=== PATIENT | female | born 1950 | race Caucasian/White ===

== ENCOUNTER 2017-10-02 06:05 | Day surgery (SDC) | payer MEDICARE, OTHER ==
[2017-10-02] MEDS ORDERED: LACTATED RINGERS 1,000 ML IV ONE (06:55)
[2017-10-02] MEDS ORDERED: MIDAZOLAM 2 MG/2 ML VIAL IVP ONE (07:30)
[2017-10-02] MEDS ORDERED: fentaNYL 100 MCG/2 ML VIAL IVP ONE (07:30)
[2017-10-02 08:47] VITALS: BP 128/78
== END 2017-10-02 06:06 | disposition home or self-care (01) ==
LOC: SDS 06:05
PROVIDERS: ATTEND Surgery
PROC: 0DBP8ZX Excision of Rectum, Via Natural or Artificial Opening Endoscopic, Diagnostic (ICD-10-PCS; principal; 2017-10-02 07:30)
DX: Z12.11 Encounter for screening for malignant neoplasm of colon (principal); K62.1 Rectal polyp; K57.30 Diverticulosis of large intestine without perforation or abscess without bleeding; K64.8 Other hemorrhoids; I10 Essential (primary) hypertension; R73.01 Impaired fasting glucose; Z79.84 Long term (current) use of oral hypoglycemic drugs; G47.30 Sleep apnea, unspecified; E66.9 Obesity, unspecified; Z68.41 Body mass index [BMI] 40.0-44.9, adult
CPT/HCPCS: 45385; J7120

== ENCOUNTER 2019-05-18 14:25 | Outpatient (CLI) | payer MEDICARE, OTHER ==
[2019-05-18 17:15] VITALS: BP 130/70
--- NOTE | 2019-05-18 17:15 | SLEEP CARE CONSULTATION ---
Information from patient questionnaire entered by Jo Dominguez. I have reviewed and concur with the information entered by Jo Dominguez. This document represents the service I personally performed and the decisions made by me, Scotty Monroy MD, [facility]. History of Present Illness Reason for Visit: New patient Chief Complaint: reports: Snoring Usual bedtime: 11:00 PM- 12:00AM Time it takes to fall asleep: 15-20 MINUTES Snores at night: Yes Observed to quit breathing while asleep: Yes Sleeps alone due to snoring: Yes Number of times waking at night: 0-1 Reasons for waking at night: reports: Other (INDIGESTION) Toss, Turn, or Twitch while sleeping: No Recalls having dreams: Yes (SOMETIMES) Usually gets out of bed at: 3:30AM-9:00AM Feels refreshed in the morning: Yes (MOST OF THE TIME) Morning headache: No Sleepy or fatigued during the day: Yes (FATIGUED) Ever fallen asleep while driving: No Takes day naps: No Dreams during day naps: Yes Prior sleep studies: Yes Year and Where: JUNE 2012 OR 2012 [facility] Additional HPI information: I had the pleasure of seeing Ms. Elias along with her today regarding obstructive sleep apnea-hypopnea. As you know, she is a 68 year old lady who was diagnosed with the sleep-disordered breathing about 6 six years ago at the [facility]. AHI was 99.2 and vanda oxygen saturation, 67%. An autoCPAP was prescribed and set at 15 17 cmH2O. She wears a full face mask. She uses it every night and all night. The compliance data show usage in 178 out of the past 180 nights, averaging 7.5 hours a night. The residual AHI is 0.7 and avera ge air leak is 8.5 L/minute. The 90th percentile pressure is 15.6 cmH2O. 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 Patient is and lives in [place]. Have you smoked in the past 12 months: No Alcohol use: No Alcohol amount and frequency: 1 TIME PER YEAR, IF THAT Caffeine use: Yes Caffeine amount and frequency: 3-6 DIET COKES/DAY Family History Family history of sleep disordered breathing: Yes Family Hx Sleep Apnea: Sibling: Snoring (AND SON), Other: Snoring Allergies and Home Medications Home medication list reviewed: Yes Review of Systems Weight gain over past 5 years: 0 Cardiovascular: reports: high blood pressure, leg or foot swelling Respiratory: reports: shortness of breath Gastrointestinal: reports: difficulty swallowing Urinary: denies: incontinence, frequency, urgency, impotence, other Neurological: reports: headaches (MIGRAINS - 1 PER YEAR, FOR A WEEK) Psychiatric: denies: Attention Deficit Hyperactivity, anxiety, depression, mood disorder, claustrophobia, other Ear/Nose/Throat: reports: dry mouth/throat, tonsillectomy, wisdom teeth removed Endocrine: reports: too hot or cold (TOO COLD) Musculoskeletal: reports: joint pain Immunologic: reports: allergies to food or environment Physical Exam Vital signs obtained and entered by: Dr. Monroy Blood Pressure: 130/70 Cuff size: long Heart Rate: 59 O2 Saturation: 97 Neck circumference: 16.5 HEENT: No craniofacial malformation Nostrils: patent to airflow Turbinates: normal Septum: midline Mouth and throat: narrow oropharynx Soft palate: long Hard palate: normal Uvula: normal Uvula visualization: 50% Mallampati Class II Tongue: normal in size Tonsils: absent bilaterally Chin and jaw: normal size and position Neck: normal w/o lymphadenopathy or thyromegaly Heart: regular rate and rhythm Lungs: clear bilaterally Abdomen: soft Extremities: no edema or clubbing Neurologic: intact Impression and Plan IMPRESSION: 1. Obstructive Sleep Apnea-Hypopnea Syndrome, very severe, as previously diagnosed. She has excellent treatment compliance. The current pressure setting appears effective and comfortable. Her mask fits well. Narrow oropharynx and obesity are common predisposing factors for obstructive sleep apnea-hypopnea syndrome. Pathophysiology of sleep-disordered breathing was discussed. Because the CPAP is now older than the useful life of 5 years, I will order the patient a new one and make it an autoCPAP set slightly lower between 10 and 15 cmH2O. Plan: 1. Prescription made for an autoCPAP, heated humidifier, and related supplies. 2. Try to lose weight. 3. Avoid alcohol, sedative and muscle relaxant around bedtime. 4. Return for follow up after one month on the new machine. I spent 100% of this 15 minute visit face to face with the patient with greater than 50% of this was spent time counseling the patient and coordination of care.
== END 2019-05-18 14:26 | disposition home or self-care (01) ==
LOC: SC 14:25
PROVIDERS: ATTEND Internal Medicine Pulmonary Disease
DX: G47.33 Obstructive sleep apnea (adult) (pediatric) (principal)
CPT/HCPCS: 99203; G0463; 99212

== ENCOUNTER 2019-08-11 12:49 | Outpatient (CLI) | payer MEDICARE, OTHER ==
[2019-08-11 13:42] VITALS: BP 130/68
--- NOTE | 2019-08-11 13:42 | SLEEP CARE CONSULTATION ---
Information from patient questionnaire entered by Vicenta Chang. I have reviewed and concur with the information entered by Vicenta Chang. This document represents the service I personally performed and the decisions made by me, Jana Brennan, RN, MSN, [employer]. History of Present Illness Previous diagnosis: Extremely Severe, Obstructive Sleep Apnea-Hypopnea Syndrome AHI: 99.2 Reason for follow up: first compliance after device update Equipment type: CPAP Equipment obtained from: [employer] Mask style: Full face Mask brand: Resmed Backup mask available: Yes Last cushion change: last night HPI additional information: She reports moderate chest pressure and bloating feeling recently waking her up in middle of night. Lasted about 15 minutes that was relieved with antigas medication, benadryl, multiples burps. She was unable to lie back down until this resolved. It has occurred 4 times in past 5 years and twice the past year with most recent episode 3 weeks ago. CPAP Compliance Data - Data Reviewed with Patient Average duration of nightly device use: 7.75 Compliance rate %: 100 Current pressure setting (cmH2O): 10-15 Humidity settin Heated hose settin Average residual AHI: 1.5 Average large leak: 12 min 16 sec Subjective Patient concerns: denies: aerophagia, mask discomfort, air blowing in eyes, mask leak noise (rare), condensation in mask/hose, nasal congestion, dry mouth, nose, throat, epistaxis Observed to snore while using device: No Current pressure setting perceived as: comfortable On therapy, patient: reports: sleeping better, awakening more refreshed, being more awake and alert during the day, more rested overall. denies: drowsiness while driving Initial [place] Sleepiness Scale score: 7 Current [place] Sleepiness Scale score: 5 Allergies and Home Medications Known drug allergies: Yes (see list) Home medication list reviewed: Yes (see list - no changes) Review of Systems Review of systems same as previous: Yes Physical Exam Blood Pressure: 130/68 Cuff size: long Heart Rate: 62 O2 Saturation: 98 Height: 5 ft 3.5 in Weight: 230 lb 12.8 oz Body Mass Index: 40.2 BMI Classification: Obesity Class 3 Impression and Plan 1. Obstructive Sleep Apnea-Hypopnea Syndrome, extremely severe, with good treatment compliance and good apnea control. On CPAP therapy, the patient has better sleep quality and is more rested overall. To reduce heat of air, she was shown how to reduce the heat of the hose first to 2 and then as needed on sample device. I also reviewed rationale for changing the hose and humidity setting. Printed web instructions given. For her supply questions, I reviewed the supply replacement list and gave her a copy. Patient's apnea severity and rationale for treatment to reduce apnea, improve sleep quality and reduce cardiovascular and cerebrovascular events was reviewed. I also reviewed the benefit of consistent device use of CPAP for her hypertension. We reviewed her obesity and associated health risks. She is planning to lose weight. I explained how significant weight loss can reduce her apnea and CPAP pressure requirements. Thus I will reduce CPAP pressure [id number]. Patient advised to contact me if pressure change uncomfortable. Also, symptoms to report for further pressure adjustment discussed with weight loss or gain. 2. Chest pressure , abdominal bloating, moderate intensity, intermittent past 5 years, last episode 3 weeks ago lasting 15 minutes and relieved with Tums, benadry and burping. Patient wondered if due to something ate. Symptoms clarified and there was no radiation of pain, dyspnea or other symptoms. Patient advised to follow up with PCP for further evaluation and agreed with plan. Symptoms sound gastric but cardiac symptoms can also present as gastric for some individuals. Thus 911 guidelines card given and reviewed. * Change CPAP pressure to [id number] * Adjust heated hose * Notify me if snoring with mask or feeling that the pressure is too much or too little * Attempt to lose weight * Follow up with PCP for further evaluation of gastric symptoms * Return for follow up in 1 year, or sooner if concerns arise I spent 100% of this 38 miinute visit face to face with the patient with greater than 50% of this was spent time counseling the patient and coordination of care.
== END 2019-08-11 12:50 | disposition home or self-care (01) ==
LOC: SC 12:49
PROVIDERS: ATTEND Nurse Practitioner Family
DX: G47.33 Obstructive sleep apnea (adult) (pediatric) (principal); E66.9 Obesity, unspecified; Z68.41 Body mass index [BMI] 40.0-44.9, adult; R07.89 Other chest pain; R14.0 Abdominal distension (gaseous)
CPT/HCPCS: 99214; G0463; 99212

== ENCOUNTER 2019-11-02 12:53 | Outpatient (CLI) | payer MEDICARE, OTHER ==
--- NOTE | 2019-11-16 10:43 | Mammography Report ---
Reason: ROUTINE MAMMO Procedure Date: 11/02/2019 Accession Number: [id number] / [id number] Procedure: ALEJANDRINA - Screening Mammo w/William CPT Code: Final Report FULL RESULT: EXAM: Screening Mammo w/William DATE: 11/02/2019 1:37 PM CLINICAL HISTORY: Screening encounter. TECHNIQUE: (B) - Bilateral CC and MLO views were obtained. COMPARISON: 10/14/2018 through 10/21/2014. PARENCHYMAL PATTERN: (D) - The breast(s) demonstrate(s) heterogeneously dense fibroglandular parenchyma. FINDINGS: There are no suspicious masses, calcifications, or areas of distortion. IMPRESSION: Negative examination. BI-RADS category 1. RECOMMENDATION: (ANNUAL) - Recommend routine annual screening mammography. BI-RADS CATEGORY: (1) - Negative. STANDARD QUALIFYING STATEMENTS: 1. This examination was not reviewed with the aid of Computer-Aided Detection (CAD). 2. A negative or benign imaging report should not preclude biopsy if clinically suspicious findings are present. 3. Dense breasts may obscure an underlying neoplasm. 4. This examination was reviewed with the aid of 3D breast imaging (tomosynthesis).
== END 2019-11-02 12:54 | disposition home or self-care (01) ==
LOC: DI 12:53
DX: Z12.31 Encounter for screening mammogram for malignant neoplasm of breast (principal)
CPT/HCPCS: 77063; 77067

== ENCOUNTER 2020-08-09 14:26 | Outpatient (CLI) | payer MEDICARE, OTHER ==
--- NOTE | 2020-08-09 15:01 | SLEEP CARE CONSULTATION ---
Information from patient questionnaire entered by Charley Davis. I have reviewed and concur with the information entered by Charley Davis. This document represents the service I personally performed and the decisions made by me, Lay Lorenzo ARNP. History of Present Illness Service Date and Time: 08/09/2020 1426 Previous diagnosis: Extremely Severe, Obstructive Sleep Apnea-Hypopnea Syndrome AHI: 99.2 Reason for follow up: annual (Last seen 07/2019) Equipment type: CPAP Equipment obtained from: Other (may be [employer] [facility]; getting supplies as needed) Mask style: Full face Backup mask available: Yes (old mask) Last cushion change: 1 month Prior sleep studies: Yes Year and Where: JUNE 2012 OR 2012 [facility] HPI additional information: BENJI LEE was diagnosed to have extremely severe, AHI 99.2, obstructive sleep apnea-hypopnea syndrome and returned today for CPAP therapy annual follow- up. Sleep Study - Results Prior sleep studies: Yes Year and Where: JUNE 2012 OR 2012 [facility] CPAP Compliance Data - Data Reviewed with Patient Average duration of nightly device use: 7 h 30 min Compliance rate %: 99.4 Current pressure setting (cmH2O): 8-12 Humidity settin Heated hose settin Average residual AHI: 2.0 Average large leak: 5 min 50 sec Subjective Patient concerns: reports: aerophagia (sometimes at night), dry mouth, nose, throat (in the morning). denies: mask discomfort, air blowing in eyes, mask leak noise, condensation in mask/hose, nasal congestion, epistaxis, other Observed to snore while using device: No Current pressure setting perceived as: comfortable On therapy, patient: reports: sleeping better, awakening more refreshed, being more awake and alert during the day, more rested overall. denies: drowsiness while driving Initial [place] Sleepiness Scale score: 7 Current [place] Sleepiness Scale score: 5 Allergies and Home Medications Drug allergies reviewed: Yes (see above) Home medication list reviewed: Yes (no changes) Review of Systems Review of systems same as previous: Yes (no changes) Physical Exam Heart Rate: 60 O2 Saturation: 99 Height: 5 ft 3.5 in Weight: 228 lb Body Mass Index: 39.7 BMI Classification: Obese Impression and Plan 1. Obstructive Sleep Apnea-Hypopnea Syndrome, extremely severe, with good treatment compliance and good apnea control. On CPAP therapy, the patient has better sleep quality and is more rested overall. She has had some trouble with bloating/burping air in the mornings that resolves in a few hours. To reduce symptoms of aerophagia, the CPAP pressure will be reduced to 8-10 cmH2O. Patient advised to contact me if this does not reduce symptoms or if pressure change uncomfortable. Patient asking about getting a travel size CPAP machine. She was advised to check with her DME for cost as most insurance do not cover this cost. She will contact us for a prescription if needed to obtain a travel size machine. Patient's apnea severity and rationale for treatment to reduce apnea, improve sleep quality and reduce cardiovascular and cerebrovascular events was reviewed. I also reviewed the benefit of consistent device use of CPAP for her hypertension. * Changeauto CPAP pressure to 8-10 cmH2O * Notify me if snoring with mask or feeling that the pressure is too much or too little * Continue to try to lose weight * Call this office if any problems using CPAP * Return for follow up in 1-2 months, or sooner if concerns arise Counseling Topics: Spare mask, Weight loss health impact Visit Type: In Office Time Spent with Patient (minutes): 20 Provider Statement: I spent 100% of the Face to Face Visit with the patient with greater than 50% spent counseling the patient and coordination of care.
== END 2020-08-09 14:27 | disposition home or self-care (01) ==
LOC: SC 14:26
PROVIDERS: ATTEND Nurse Practitioner Family
DX: G47.33 Obstructive sleep apnea (adult) (pediatric) (principal); E66.9 Obesity, unspecified; Z68.39 Body mass index [BMI] 39.0-39.9, adult
CPT/HCPCS: 99213; G0463; 99212

== ENCOUNTER 2020-10-03 14:05 | Outpatient (CLI) | payer MEDICARE, OTHER ==
--- NOTE | 2020-10-03 14:30 | SLEEP CARE CONSULTATION ---
Information from patient questionnaire entered by Charley Davis. I have reviewed and concur with the information entered by Charley Davis. This document represents the service I personally performed and the decisions made by me, Lay Lorenzo ARNP. History of Present Illness Service Date and Time: 10/03/2020 1405 Previous diagnosis: Extremely Severe, Obstructive Sleep Apnea-Hypopnea Syndrome AHI: 99.2 Reason for follow up: other (6-WEEK FOLLOWUP - PRESSURE CHANGE) Equipment type: CPAP Equipment obtained from: [employer] (getting supplies as needed) Mask style: Full face Backup mask available: Yes (other mask) Last cushion change: yesterday Prior sleep studies: Yes Year and Where: JUNE 2012 OR 2012 [facility] HPI additional information: BENJI LEE was diagnosed to have extremely severe, AHI 99.2, obstructive sleep apnea-hypopnea syndrome and returned today for CPAP therapy 6 week pressure change follow-up. Sleep Study - Results Prior sleep studies: Yes Year and Where: JUNE 2012 OR 2012 [facility] CPAP Compliance Data - Data Reviewed with Patient Average duration of nightly device use: 7 h 34 min Compliance rate %: 96.7 Current pressure setting (cmH2O): 8-10 Humidity settin Heated hose settin Average residual AHI: 1.7 Average large leak: 3 min 8 sec Subjective Patient concerns: reports: dry mouth, nose, throat (dry mouth, not as bad but is still there). denies: aerophagia, mask discomfort, air blowing in eyes, mask leak noise, condensation in mask/hose, nasal congestion, epistaxis, other Observed to snore while using device: No Current pressure setting perceived as: comfortable On therapy, patient: reports: sleeping better, awakening more refreshed, being more awake and alert during the day, more rested overall. denies: drowsiness while driving Initial [place] Sleepiness Scale score: 7 (in 2019) Current [place] Sleepiness Scale score: 5 Allergies and Home Medications Drug allergies reviewed: Yes (lisnopril, iopamidol, Sulfates) Home medication list reviewed: Yes (no changes) Review of Systems Review of systems same as previous: Yes (no changes) Physical Exam Heart Rate: 63 O2 Saturation: 98 Height: 5 ft 3.5 in Weight: 228 lb Body Mass Index: 39.7 BMI Classification: Obese Impression and Plan 1. Obstructive Sleep Apnea-Hypopnea Syndrome, extremely severe, with good treatment compliance and excellent apnea control. On CPAP therapy, the patient has better sleep quality and is more rested overall. She has been having some mouth dryness. She tried to adjust her humidity setting but it said she was locked out. I will have discharge operating cost clerk adjust this in her settings, so she can adjust her humidity setting. Oral dryness can be reduced by adjusting humidity setting higher or heated hose lower or by adjusting both settings. Verbal instructions given on how to change humidity and heated hose settings with rationale explaining why to change. Patient's apnea severity and rationale for treatment to reduce apnea, improve sleep quality and reduce cardiovascular and cerebrovascular events was reviewed. I also reviewed the benefit of consistent device use of CPAP for hypertension. * Continue auto CPAP pressure at 8-10 cmH2O * Notify me if snoring with mask or feeling that the pressure is too much or too little * Attempt to lose weight * Call this office if any problems using CPAP * Return for follow up in 1 year, or sooner if concerns arise Counseling Topics: Spare mask, Weight loss health impact Visit Type: In Office Time Spent with Patient (minutes): 16 Provider Statement: I spent 100% of the Face to Face Visit with the patient with greater than 50% spent counseling the patient and coordination of care.
--- OUTSIDE RECORDS SUMMARY | 2020-10-11 00:20 | EXTERNAL MEDICAL SUMMARY RPT | Continuity of Care Document ---
:1950 Demographics Phone Unavailable Preferred Language Unknown Marital Status Unknown Voodoo Affiliation Unknown Race Unknown Ethnic Group Unknown Author Organization [place] Address [address] [phone] Phone Care Team Providers Name Role Phone MARSHALL Unavailable Unavailable Allergies date description facility NO KNOWN ENVIRONMENTAL ALLERGIES [facility] NO ALLERGY INFORMATION AVAILABLE [facility] OPIOIDS - MORPHINE ANALOGUES [facility] SULFA (SULFONAMIDE ANTIBIOTICS) [facility] NO KNOWN ALLERGIES [facility] LORAZEPAM [facility] Social History date description facility [phone]
== END 2020-10-03 14:06 | disposition home or self-care (01) ==
LOC: SC 14:05
PROVIDERS: ATTEND Nurse Practitioner Family
DX: G47.8 Other sleep disorders (principal); E66.9 Obesity, unspecified; Z68.39 Body mass index [BMI] 39.0-39.9, adult
CPT/HCPCS: 99213; G0463; 99212

== ENCOUNTER 2021-05-08 15:46 | Outpatient (CLI) | payer MEDICARE, OTHER ==
--- NOTE | 2021-05-08 16:23 | SLEEP CARE CONSULTATION ---
Information from patient questionnaire entered by Charley Davis. I have reviewed and concur with the information entered by Charley Davis. This document represents the service I personally performed and the decisions made by , Lay Lorenzo ARNP. History of Present Illness Service Date and Time: 05/08/2021 1546 Previous diagnosis: Extremely Severe, Obstructive Sleep Apnea-Hypopnea Syndrome AHI: 99.2 Reason for follow up: other (7-month followup - Needs study for oral device) Equipment type: CPAP Equipment obtained from: [employer] (getting supplies as needed) Mask style: Full face Prior sleep studies: Yes Year and Where: JUNE 2012 OR 2012 [facility] HPI additional information: BENJI LEE was diagnosed to have extremely severe, AHI 99.2, obstructive sleep apnea-hypopnea syndrome and returned today for CPAP therapy 7 month follow-up, needs HST for an oral appliance. She has not been using her CPAP because she found clear particles in her water chamber and then found out about the recall on her device. She has been using a [employer] device with this machine. CPAP Compliance Data - Data Reviewed with Patient Average duration of nightly device use: 7 h 16 min Compliance rate %: 98.9 (09/13/2020--03/11/2021) Current pressure setting (cmH2O): 8-10 Humidity settin Heated hose settin Average residual AHI: 1.8 Average large leak: 2 min 46 sec Subjective Missed days of use due to: reports: other (due to recall and particles found in device) Patient concerns: reports: other (water chamber getting dirty and having particle in the water). denies: aerophagia, mask discomfort, air blowing in eyes, mask leak noise, condensation in mask/hose, nasal congestion, dry mouth, nose, throat, epistaxis Current pressure setting perceived as: comfortable On therapy, patient: reports: other (Feels better since she stopped using the CPAP) Initial [place] Sleepiness Scale score: 7 (in 2019) Current [place] Sleepiness Scale score: 4 Allergies and Home Medications Home medication list reviewed: Yes (no changes) Review of Systems Review of systems same as previous: Yes (no changes) Physical Exam Heart Rate: 71 O2 Saturation: 97 Height: 5 ft 3.5 in Weight: 220 lb Body Mass Index: 38.3 BMI Classification: Obese Impression and Plan 1. Suspected Obstructive Sleep Apnea-Hypopnea Syndrome, as previously diagnosed and as suggested by a history of loud and irregular snoring, observed cessation of breath while asleep, frequent awakening during the night, unrefreshed sleep, and excessive daytime sleepiness. Patient stopped using her CPAP machine because it had clear particles in the water chamber. She bought another [employer] Clean device because she thought the old one was contaminating her water chamber. Once she learned about the recall she stopped using the machine altogether. She states she feels better since she has stopped using the machine and she has less swelling in her legs. She has been exercising and lost some weight. Patient would like to try an alternate method of controlling her apneas, oral appliance. She has been consulting with a dentist who requires a home study to go forward with an oral appliance. Patient had very severe obstructive sleep apnea noted with her last study. I discussed with patient that it will depend on the severity of her sleep apnea on whether an oral appliance would be effective and she voiced understanding. We will repeat a sleep study and then go from there as far as treatment. I obtained agreement to proceed. The pathophysiology of obstructive sleep apnea-hypopnea syndrome was discussed with the patient and health risks of cardiovascular and cerebrovascular disease if not treated. Risks of drowsy driving discussed in detail and patient advised to avoid long distance driving and to extract puller at the first sign of drowsiness. Patient agreed to plan. * Schedule polysomnography +- manual CPAP titration study and return in 1-2 weeks after the study to discuss result and initiate therapy. * Avoid long distance driving or driving when feeling sleepy. * Avoid alcohol, sedative and muscle relaxant around bedtime. * Continue to try to lose weight. * Review instructions provided by trained office staff on how to prepare for the sleep study. * Return for follow-up after sleep study completed. Counseling Topics: Weight loss health impact Visit Type: In Office Time Spent with Patient (minutes): 23 Provider Statement: I spent 100% of the Face to Face Visit with the patient with greater than 50% spent counseling the patient and coordination of care.
== END 2021-05-08 15:47 | disposition home or self-care (01) ==
LOC: SC 15:46
PROVIDERS: ATTEND Nurse Practitioner Family
DX: G47.33 Obstructive sleep apnea (adult) (pediatric) (principal); E66.9 Obesity, unspecified; Z68.38 Body mass index [BMI] 38.0-38.9, adult
CPT/HCPCS: 99213; G0463; 99212

== ENCOUNTER 2021-06-07 13:17 | Outpatient (CLI) | payer MEDICARE, OTHER | END 2021-06-07 13:18 | disposition home or self-care (01) | LOC: SC 13:17 | PROVIDERS: ATTEND Nurse Practitioner Family | DX: G47.33 Obstructive sleep apnea (adult) (pediatric) (principal); R09.02 Hypoxemia | CPT/HCPCS: G0399 ×2; 95806 ==

== ENCOUNTER 2021-06-20 15:36 | Outpatient (CLI) | payer MEDICARE, OTHER ==
--- NOTE | 2021-06-20 16:12 | SLEEP CARE CONSULTATION ---
Information from patient questionnaire entered by Charley Davis. I have reviewed and concur with the information entered by Charley Davis. This document represents the service I personally performed and the decisions made by , Lay Lorenzo ARNP. History of Present Illness Service Date and Time: 06/20/2021 1536 Initial Ethel Sleepiness Scale score: 7 (in 2019) Current Ethel Sleepiness Scale score: 10 Additional HPI information: BENJI LEE returns for follow up and results of the recently performed home sleep study. I explained the pathophysiology behind obstructive sleep apnea. We then spent quite a bit of time discussing different treatment options. For mild obstructive sleep apnea, surgery and oral appliance are alternatives to nasal CPAP therapy but in moderate or severe cases, nasal CPAP is the most effective and reliable treatment. I reviewed the impact of weight changes on sleep apnea and strongly recommended losing weight. Patient does not drink alcohol. Patient was cautioned about risks of drowsy driving until sleepiness symptoms resolve. Patient denies drowsy driving. Sleep Study - Results Type of Sleep Study: Home sleep study Prior sleep studies: Yes Polysomnography/Home Sleep Study results: Physician Impression: The quality of the study is good. The length of the study is adequate (> 240 minutes). Please also see the tabulated and graphic data. 1. Obstructive Sleep Apnea-Hypopnea (ICD-10 G47.33), moderate, with an AHI of 17.1/hr and vanda SaO2 of 73%. During the study, the patient had 98 apneas (98 obstructive, 0 central, 0 mixed) and 69 hypopneas. The longest episode lasted 103.0 seconds. The respiratory events occurred independently of sleep stage and body position (supine AHI was 19.9 and non-supine, 16.11). 2. Hypoxemia (ICD-10 R09.02), moderate, with the lowest oxygen saturation of 73 % and 27.6 minutes with SaO2 under 90%. Baseline oxygen saturation was normal (Average oxygen saturation was 93%). Allergies and Home Medications Home medication list reviewed: Yes (no changes) Review of Systems Review of systems same as previous: Yes (no changes) Physical Exam Heart Rate: 79 O2 Saturation: 95 Height: 5 ft 3.5 in Weight: 222 lb Body Mass Index: 38.7 BMI Classification: Obese Impression and Plan 1. Obstructive Sleep Apnea-Hypopnea Syndrome, moderate, with lowest oxygen saturation of 73%. Positive pressure therapy could benefit hypertension. The patient chose an oral appliance to treat their apnea. A 3 month follow up will be made to see if appliance has reduced symptoms. If so, another polysomnography will be ordered with use of the oral appliance to check efficacy in reducing apnea. Until patient is able to use the oral appliance, positional therapy is advised to avoid supine sleep with pillow positioning or one of the commercial products because apnea is more severe supine. 2. Hypoxemia, moderate, with the lowest oxygen saturation of 73 % and 27.6 minutes with SaO2 under 90%. Her baseline oxygen saturation was normal with an average oxygen saturation of 93%. * Oral appliance * Continue to try to lose weight. * Avoid alcohol consumption near bedtime. * Avoid supine sleep * The patient is again cautioned about driving until sleepiness completely r esolves. * Return in about 3 months after she obtains her oral device. I will assess response to therapy at that time. Counseling Topics: Sleeping position, Weight loss health impact Visit Type: In Office Time Spent with Patient (minutes): 15 Provider Statement: I spent 100% of the Face to Face Visit with the patient with greater than 50% spent counseling the patient and coordination of care.
== END 2021-06-20 15:37 | disposition home or self-care (01) ==
LOC: SC 15:36
PROVIDERS: ATTEND Nurse Practitioner Family
DX: G47.33 Obstructive sleep apnea (adult) (pediatric) (principal); R09.02 Hypoxemia; E66.9 Obesity, unspecified; Z68.38 Body mass index [BMI] 38.0-38.9, adult
CPT/HCPCS: 99212; G0463

== ENCOUNTER 2022-12-24 12:04 | Emergency (ER) | payer MEDICARE, OTHER ==
[2022-12-24 12:18] VITALS: BP 145/87
--- NOTE | 2022-12-24 12:33 | ED Physician Documentation ---
PD HPI HEENT - Stated complaint Stated Complaint: R EAR BLEED - Chief complaint Chief Complaint: Heent - History obtained from History obtained from: Patient - History of Present Illness Timing - onset: How many days ago (3) Timing - duration: Days (3) - Additional information Additional information: Patient is a 72-year-old female who states that she has had 5 surgeries on her right ear. She states that she has an implant in the ear as well. She states that she noticed some white/clear drainage over the past 2 to 3 days, this mor selena she noted bloody drainage as well. She states she does not really have any feeling in that ear. She states that her surgeries were performed at [facility] again. Does not have an ENT. She states she is supposed to have her ear checked every 6 months, but it has been several years. No fevers. No chills. Nothing makes it better or worse. Review of Systems Constitutional: denies: Fever, Chills Nose: denies: Rhinorrhea / runny nose, Congestion Skin: denies: Rash Musculoskeletal: denies: Neck pain, Back pain Neurologic: denies: Headache PD PAST MEDICAL HISTORY - Past Medical History Cardiovascular: Hypertension, High cholesterol, Other Respiratory: Sleep apnea, CPAP use, Other Endocrine/Autoimmune: Type 2 diabetes GI: GERD, Colon polyps : Chronic bladder infection HEENT: Chronic vision loss, Chronic hearing loss Psych: None Musculoskeletal: Osteoarthritis Derm: None - Past Surgical History Past Surgical History: Yes General: Colonoscopy HEENT: Tonsil/Adenoidectomy - Present Medications Home Medications: Ambulatory Orders Medication Instructions Recorded Confirmed Doxazosin [Cardura] 4 mg PO DAILY 11/24/13 10/02/17 Fexofenadine HCl [Genet] 30 mg PO DAILY 11/24/13 10/02/17 Metformin HCl [Glumetza] 500 mg PO DAILY PM 11/24/13 10/02/17 NIFEdipine [Procardia Xl] 90 mg PO DAILY 11/24/13 10/02/17 Ciproflox/Dexameth Otic Drops 4 drops OT BID 7 Days #1 each 12/24/22 [Ciprodex] - Allergies Allergies/Adverse Reactions: Allergies Allergy/AdvReac Type Severity Reaction Status Date / Time lisinopril Allergy Unknown Edema Verified 12/24/22 12:18 iopamidol [From Isovue-M] Allergy Rash Verified 12/24/22 12:18 metoprolol Allergy Anaphylaxis Verified 12/24/22 12:18 Sulfa (Sulfonamide Allergy Rash Verified 12/24/22 12:18 Antibiotics) sulfates Allergy Intermediate Nausea Uncoded 12/24/22 12:18 - Social History Does the pt smoke?: No Smoking Status: Never smoker Does the pt drink ETOH?: No Does the pt have substance abuse?: No - Immunizations Immunizations are current?: Yes - POLST Patient has POLST: No POLST Status: Full Code PD ED PE NORMAL - Vitals Vital signs reviewed: Yes - General General: Alert and oriented X 3, No acute distress - HEENT HEENT: Moist mucous membranes, Other (Right ear - The ear canal is very edematous and swollen. There is yellow and bloody drainage. Unable to visualize the tympanic membrane. The pinna is normal. There is no auricular lymphadenopathy. No tenderness over the mastoid. Left ear is normal) - Neck Neck: Supple, no meningeal sign - Derm Derm: Warm and dry - Neuro Neuro: Alert and oriented X 3 Results - Vitals Vitals: Vital Signs - 24 hr 12/24/22 12/24/22 12/24/22 12:11 12:29 12:46 Temperature 36.2 C L Heart Rate 84 Respiratory 16 16 15 Rate Blood Pressure 145/87 H O2 Saturation 97 Oxygen O2 Source Room air PD Medical Decision Making - ED course Complexity details: considered differential, d/w patient ED course: 72-year-old female with what appears to be a right acute otitis externa. Unable to visualize the tympanic membrane. Therefore we will place her on Ciprodex. Recommend that she contact ENT today for a close follow-up. The number was given to the patient. Patient does not have any fevers. No evidence of cellulitis of the pinna or cartilage involvement. Patient counseled regarding signs and symptoms for which I believe and urgent re-evaluation would be necessary. Patient with good understanding of and agreement to plan and is comfortable going home at this time This document was made in part using voice recognition software. While efforts are made to proofread this document, sound alike and grammatical errors may occur. Departure - Departure Disposition: 01 Home, Self Care Clinical Impression: Otitis externa Qualifiers: Otitis externa type: unspecified type Chronicity: acute Laterality: right Qualified Code(s): H60.501 - Unspecified acute noninfective otitis externa, right ear Condition: Good Instructions: ED Otitis Externa Follow-Up: [facility] [Provider Group] - Within 1 week Prescriptions: Ciproflox/Dexameth Otic Drops [Ciprodex] 4 drops OT BID 7 Days #1 each Comments: Please follow-up with ENT for further care. Please return if you worsen. Use the medications as prescribed. I would call the [facility] office for a expedited appointment and let them know that you were seen in the emergency department today.
== END 2022-12-24 12:52 | disposition home or self-care (01) ==
LOC: ED 12:04
DX: H60.501 Unspecified acute noninfective otitis externa, right ear (principal); I10 Essential (primary) hypertension; E78.00 Pure hypercholesterolemia, unspecified; E11.9 Type 2 diabetes mellitus without complications; Z79.84 Long term (current) use of oral hypoglycemic drugs; Z79.899 Other long term (current) drug therapy
CPT/HCPCS: 99282; 99283

== ENCOUNTER 2023-09-02 15:50 | Emergency (ER) | payer MEDICARE, OTHER ==
--- NOTE | 2023-09-02 16:33 | XRAY Report ---
PROCEDURE: Hip w/Pelvis 2-3V RT INDICATIONS: hip pain, GLF TECHNIQUE: AP pelvis with lateral view(s) of the right hip(s). COMPARISON: None. FINDINGS: Bones: No fractures or dislocations. No suspicious bony lesions. Soft tissues: No suspicious soft tissue calcifications or masses. IMPRESSION: No acute bony abnormality. Reviewed by: Sherry Lei MD, PhD on 09/02/2023 4:32 PM PST Approved by: Sherry Lei MD, PhD on 09/02/2023 4:32 PM PST Station ID: [id number]
--- NOTE | 2023-09-02 17:07 | ED Physician Documentation ---
History of Present Illness - Stated complaint Stated Complaint: RT HIP PX - Chief complaint Chief Complaint: Ext Problem - Additonal information Additional information: 72-year-old female presents emergency department for evaluation of 2 weeks right lateral hip pain. States that she was going to sit down when a chair slipped out from under her and she fell directly onto her bottom. She was able to get up and did not think much of the incident but over the last 2 weeks she has had persistent pain in the right hip especially in the morning when she wakes up. She has been taking ibuprofen but it is not helping. She states she has a history of sciatica but seemingly after the fall her sciatica seems to have resolved. She has no fevers, saddle anesthesia, loss of bowel or bladder function. 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 : Chronic bladder infection HEENT: Chronic vision loss, Chronic hearing loss Psych: None Musculoskeletal: Osteoarthritis, Other Derm: None Other Past Medical History: sciatica - Past Surgical History Past Surgical History: Yes General: Colonoscopy HEENT: Tonsil/Adenoidectomy - Present Medications Home Medications: Ambulatory Orders Medication Instructions Recorded Confirmed Doxazosin [Cardura] 4 mg PO DAILY 11/24/13 09/02/23 Fexofenadine HCl [Genet] 30 mg PO DAILY 11/24/13 09/02/23 Metformin HCl [Glumetza] 500 mg PO DAILY PM 11/24/13 09/02/23 Ibuprofen [Advil] 400 mg PO Q6HR PRN 09/02/23 09/02/23 - Allergies Allergies/Adverse Reactions: Allergies Allergy/AdvReac Type Severity Reaction Status Date / Time lisinopril Allergy Unknown Edema Verified 12/24/22 12:18 iopamidol [From Isovue-M] Allergy Rash Verified 12/24/22 12:18 metoprolol Allergy Anaphylaxis Verified 12/24/22 12:18 Sulfa (Sulfonamide Allergy Rash Verified 12/24/22 12:18 Antibiotics) sulfates Allergy Intermediate Nausea Uncoded 12/24/22 12:18 - Social History Does the pt smoke?: No Smoking Status: Never smoker Does the pt drink ETOH?: No Does the pt have substance abuse?: No - Immunizations Immunizations are current?: Yes - POLST Patient has POLST: No POLST Status: Full Code PD ED PE NORMAL - General General: Alert and oriented X 3 - Cardiac Cardiac: RRR, No murmur - Respiratory Respiratory: No respiratory distress, Clear bilaterally - Abdomen Abdomen: Normal bowel sounds, Soft - Back Back: No spinal TTP (no midline lower lumbar or sacral tenderness elicits) - Extremities Extremities: Other (full ROM of hip in all planes; mild tenderness lateral hip without swelling, erythema. NVI distally) Results - Vitals Vitals: Vital Signs - 24 hr 09/02/23 09/02/23 16:05 16:39 Temperature 37 C Heart Rate 62 58 L Respiratory 16 18 Rate Blood Pressure 215/102 H 205/91 H O2 Saturation 97 94 Oxygen O2 Source Room air - Rads (name of study) right hip xr Relevant Findings:: Final report received (no acute osseous lesion or frature) Ct head Relevant Findings:: Final report received (Nondisplaced lucency within the superior acetabulum most suspicious for fracture. No femoral head or neck fracture.) PD Medical Decision Making - ED course Complexity details: reviewed results, re-evaluated patient, d/w patient ED course: In 9 minutes 72-year-old female presents emergency department for evaluation of acute right hip pain after ground-level fall 2 weeks ago when a chair slipped out from underneath her and she landed on the right hip. She has been ambulatory over the course that time but finds that the pain is persistent and worse in the morning. Pain improves with Motrin. There have been no fevers. Her exam was relatively benign sparing minor tenderness of the lateral hip on palpation only but not with movement. Initial x-ray was negative. However given the persistence of symptoms not improving over the course of time a CT was done which does suggest a possible acetabular fracture. Case was briefly discussed with on-call orthopedist Dr. Telles who recommends outpatient follow-up but no change in management in the interim. I discussed the finding with the patient and her at the bedside. They are comfortable with discharge home. The usual emergent return precautions were discussed for worsening symptoms. Departure - Departure Disposition: 01 Home, Self Care Clinical Impression: Ground-level fall Acetabular fracture Qualifiers: Encounter type: initial encounter Sublocation of acetabulum: anterior wall Fracture type: closed Fracture alignment: nondisplaced Laterality: right Qualified Code(s): S32.414A - Nondisplaced fracture of anterior wall of right acetabulum, initial encounter for closed fracture Condition: Stable Record reviewed to determine appropriate education?: Yes Follow-Up: Omar Huston MD [Provider Admit Priv/Credential] - Comments: The x-ray of your hip was normal however the CT of the hip suggest that you may have a nondisplaced fracture within the acetabulum a portion of your hip. Because you are ambulatory at this time our treatment plan would not change but you do need to follow-up with orthopedics. You can continue walking and weightbearing as tolerated. Ibuprofen and Tylenol can be taken [id number] for discomfort. Return to the ER for any new or worsening symptoms. Forms: PCP List
--- NOTE | 2023-09-02 18:40 | CT Report ---
PROCEDURE: PELVIS WO INDICATIONS: right hip pain after fall for 2 weeks TECHNIQUE: Noncontrast 3 mm axial sections acquired through the bony pelvis, with coronal and sagittal reformatt ing. For radiation dose reduction, the following was used: automated exposure control, adjustment of mA and/or kV according to patient size. COMPARISON: X-ray hip 09/02/2023 FINDINGS: Image quality: Excellent. Bones: There is a nondisplaced lucency within the superior lateral right acetabulum. Remaining osseo us structures appear intact. Soft tissues: Visualized portions of the pelvis demonstrate nonobstructive gas pattern. Diverticular present. Bladder is distended. IMPRESSION: Nondisplaced lucency within the superior acetabulum most suspicious for fracture. No femoral head or neck fracture. Reviewed by: Kim Perez MD on 09/02/2023 6:39 PM PST Approved by: Kim Perez MD on 09/02/2023 6:39 PM PST Station ID: [id number]
[2023-09-02 19:07] VITALS: BP 194/75; O2SAT 95
== END 2023-09-02 19:11 | disposition home or self-care (01) ==
LOC: ED 15:50
DX: S32.414A Nondisplaced fracture of anterior wall of right acetabulum, initial encounter for closed fracture (principal); W18.30XA Fall on same level, unspecified, initial encounter; I10 Essential (primary) hypertension; E11.9 Type 2 diabetes mellitus without complications; Z79.84 Long term (current) use of oral hypoglycemic drugs
CPT/HCPCS: 99284

== ENCOUNTER 2023-09-09 13:00 | Outpatient (CLI) | payer MEDICARE, OTHER ==
--- NOTE | 2023-09-09 21:08 | XRAY Report ---
PROCEDURE: Hip 2 View RT INDICATIONS: RIGHT HIP PAIN TECHNIQUE: 2 view(s) of the hip were acquired. COMPARISON: 09/02/2023 FINDINGS: Bones: No fractures or dislocations. No suspicious bony lesions. The visualized pelvic ring appear s intact. Soft tissues: No suspicious soft tissue calcifications or masses. IMPRESSION: Previous described superior acetabular fracture is not well depicted by radiograph Reviewed by: Tate Ferreira MD on 09/09/2023 8:07 PM AKST Approved by: Tate Ferreira MD on 09/09/2023 8:07 PM AKST Station ID: [id number]
== END 2023-09-09 23:59 | disposition home or self-care (01) ==
LOC: DI.WOS 13:00
PROVIDERS: ATTEND Orthopaedic Surgery
DX: M25.551 Pain in right hip (principal)

== ENCOUNTER 2023-10-09 08:00 | Outpatient (CLI) | payer MEDICARE, OTHER ==
--- NOTE | 2023-10-10 08:02 | XRAY Report ---
PROCEDURE: Hip 2 View RT INDICATIONS: RIGHT ACETABULUM FRACTURE TECHNIQUE: 2 view(s) of the hip were acquired. COMPARISON: X-ray right hip, 09/02/2023 and 09/09/2023. CT pelvis, 09/02/2023. FINDINGS: Bones: Subtle cortical irregularity in the superior acetabulum. No dislocations. No suspicious bony lesions. The visualized pelvic ring appears intact. Mild osteoarthritic changes in hips and sacroil iac joints. Degenerative changes in the lower lumbar spine. Soft tissues: No suspicious soft tissue calcifications or masses. IMPRESSION: Subtle cortical irregularity in the superior acetabulum. Reviewed by: Brock Marsh MD on 10/10/2023 8:01 AM PST Approved by: Brock Marsh MD on 10/10/2023 8:01 AM [facility] Station ID: [id number]
== END 2023-10-09 23:59 | disposition home or self-care (01) ==
LOC: DI.WOS 08:00
PROVIDERS: ATTEND Orthopaedic Surgery
DX: S32.484A Nondisplaced dome fracture of right acetabulum, initial encounter for closed fracture (principal)

== ENCOUNTER 2023-12-16 08:00 | Outpatient (CLI) | payer MEDICARE, OTHER ==
--- NOTE | 2023-12-16 19:22 | XRAY Report ---
PROCEDURE: Hip 2 View RT INDICATIONS: RIGHT ACETABULUM FRACTURE TECHNIQUE: 3 view(s) of the hip were acquired. COMPARISON: 10/09/2023, 09/09/[address] of pelvis dated 09/02/2023. FINDINGS: Bones: There is interval further healing at patient's known superior right acetabular fracture with s ubtle sclerosis. No new fracture or dislocation. Right hip joint osteoarthritis is seen, no evidence of avascular necrosis of femoral head. No suspicious bony lesions. The visualized pelvic ring appea rs intact. Soft tissues: No suspicious soft tissue calcifications or masses. IMPRESSION: Interval further healing at lateral right acetabular roof fracture site. No new fracture or dislocati on. No evidence of avascular necrosis. Reviewed by: Ryan Greenberg MD on 12/16/2023 7:20 PM PDT Approved by: Ryan Greenberg MD on 12/16/2023 7:20 PM PDT Station ID: [id number]
== END 2023-12-16 23:59 | disposition home or self-care (01) ==
LOC: DI.WOS 08:00
PROVIDERS: ATTEND Orthopaedic Surgery
DX: S32.484D Nondisplaced dome fracture of right acetabulum, subsequent encounter for fracture with routine healing (principal)

== ENCOUNTER 2024-01-13 12:18 | Outpatient (CLI) | payer MEDICARE, OTHER ==
--- NOTE | 2024-01-13 19:10 | MRI Report ---
PROCEDURE: Lumbar Spine WO INDICATIONS: RADICULPOATHY TECHNIQUE: Noncontrast sagittal T1 spin echo and T2 fast echo, sagittal STIR, axial T1 and T2 fast spin echo thr ough the lumbar spine. In cases with scoliosis, additional coronal T2 fast spin echo may be performe d. COMPARISON: None. FINDINGS: Image quality: Excellent. Alignment and Curvature: There is straightening of normal lumbar lordosis. Bone Marrow: There is no gross marrow edema. Modic type I degenerative endplate changes are noted at L4-5 level. No acute vertebral body compression fractures. Spinal Cord: Conus medullaris terminates at the L1 level. Visualized cord demonstrates normal signa l and size. Paraspinous Soft Tissues: No paravertebral masses. T12-L1: Normal in appearance. L1-L2: There is loss of disc height and disc signal. No significant disc bulge, canal stenosis or neural foraminal narrowing. L2-L3: There is loss of disc height and disc signal. Diffuse disc bulge and bilateral facet arthro sis with hypertrophy of ligamentum flavum is seen causing moderate central canal stenosis and moderat e bilateral neural foraminal narrowing. L3-L4: There is loss of disc signal. Diffuse is bulge and bilateral facet arthrosis is seen with mi ld central canal stenosis and moderate bilateral neural foraminal narrowing. L4-L5: There is loss of disc height and disc signal. Broad-based disc bulge and bilateral facet art hrosis with hypertrophy of ligamentum flavum causing severe central canal stenosis and moderate to se lisa bilateral neural foraminal narrowing. Bulging disc is seen contacting bilateral L4 and L5 nerve roots. L5-S1: Mild broad-based disc bulge is seen without significant central canal stenosis or neural for aminal narrowing. IMPRESSION: 1. Straightening of normal lumbar lordosis. No acute compression fracture or spondylolisthesis. No ma rrow edema. 2. Degenerative disc disease at L1-2 through L5-S1 levels causing various degrees of central canal st enosis and bilateral neural foraminal narrowing most notably at L4-5 level as described above. Reviewed by: Ryan Huerta MD on 01/13/2024 7:08 PM PDT Approved by: Ryan Huerta MD on 01/13/2024 7:08 PM PDT Station ID: [id number]
== END 2024-01-13 12:19 | disposition home or self-care (01) ==
LOC: DI 12:18
PROVIDERS: ATTEND Student in an Organized Health Care Education/Training Program
DX: M51.16 Intervertebral disc disorders with radiculopathy, lumbar region (principal); M48.061 Spinal stenosis, lumbar region without neurogenic claudication; M47.816 Spondylosis without myelopathy or radiculopathy, lumbar region; M51.37 Other intervertebral disc degeneration, lumbosacral region